=== PATIENT | female | born 1995 | race Caucasian/White ===

== ENCOUNTER 2017-12-01 09:26 | Emergency (ER) | payer OTHER ==
[2017-12-01 09:41] VITALS: BMI 18.5
--- NOTE | 2017-12-01 09:46 | PDOC ---
History of Present Illness - General History Source: Patient Exam Limitations: No Limitations - History of Present Illness Initial Comments: 12/01/17 10:55 The patient is a 22 year old female, with a significant PMH of anxiety who presents to the emergency department with SOB since today morning. The patient reports the symptoms are similar to the time she had an anxiety attack. The patient states she she was unable to sleep due to the discomfort in breathing. The patient reports nausea followed only by belching, but denies vomiting. She also reports associated chest pressure-like pain with breathing (feels like someone punched my chest). The patient states she started taking laxative because she was having difficulty moving her bowels, however, continued to use the laxatives because it reportedly helped her to lose weight. She reports the last use of laxative was about one month ago. The patient denies vomiting, cough , fever, chills, diarrhea, constipation, frequency or urgency to urinate. Secondarily, the patient reports loss of appetite for the past 1-2 months which she attributes to a sensation of being full even with the littlest bite followed by the feeling of pressure on her lungs. Last Menses: 11/14/2017 Allergies: NKA Meds: hydroxyzine Past surgical history: Patient reports none Social history: Patient denies any use of cigarettes, alcohol or recreational drugs PCP: Dr. Na Ogden Psych: Dr. Godinez <Lisa Peres - Last Filed: 12/01/17 11:07> <Elizabeth Hubbard - Last Filed: 12/01/17 11:59> - General Chief Complaint: Lightheaded Stated Complaint: DEHYDRATED Time Seen by Provider: 12/01/17 09:46 Past History <Lisa Peres - Last Filed: 12/01/17 11:07> - Past Medical History COPD: No Psychiatric Problems: Yes (ANXIETY) - Immunization History Immunization Up to Date: Yes - Suicide/Smoking/Psychosocial Hx Smoking Status: No Smoking History: Never smoked Number of Cigarettes Smoked Daily: 0 Cigars Per Day: 0 Hx Alcohol Use: No Substance Use Type: None <Elizabeth Hubbard - Last Filed: 12/01/17 11:59> - Past Medical History Allergies/Adverse Reactions: Allergies Allergy/AdvReac Type Severity Reaction Status Date / Time No Known Allergies Allergy Verified 12/01/17 09:37 Home Medications: Ambulatory Orders Hydroxyzine Pamoate 25 mg PO TID 12/01/17 Review of Systems - Review of Systems Able to Perform ROS?: Yes Comments:: 12/01/17 10:55 GENERAL/CONSTITUTIONAL: No fever or chills. No weakness. HEAD, EYES, EARS, NOSE AND THROAT: No change in vision. No ear pain or discharge. No sore throat. CARDIOVASCULAR: (+) chest pain and shortness of breath. RESPIRATORY: No cough, wheezing, or hemoptysis. GASTROINTESTINAL: (+) nausea. No vomiting, diarrhea or constipation. GENITOURINARY: No dysuria, frequency, or change in urination. MUSCULOSKELETAL: No joint or muscle swelling or pain. No neck or back pain. SKIN: No rash NEUROLOGIC: No headache, vertigo, loss of consciousness, or change in strength/ sensation. ENDOCRINE: No increased thirst. No abnormal weight change. HEMATOLOGIC/LYMPHATIC: No anemia, easy bleeding, or history of blood clots. ALLERGIC/IMMUNOLOGIC: No hives or skin allergy. <Lisa Peres - Last Filed: 12/01/17 11:07> *Physical Exam - Vital Signs Last Vital Signs Temp Pulse Resp BP Pulse Ox 97.9 F 119 H 19 109/47 100 12/01/17 09:37 12/01/17 09:37 12/01/17 09:37 12/01/17 09:37 12/01/17 09:37 - Physical Exam Comments: 12/01/17 10:56 GENERAL: Awake, alert, and fully oriented, in no acute distress HEAD: No signs of trauma EYES: PERRLA, EOMI, sclera anicteric, conjunctiva clear ENT: Auricles normal inspection, hearing grossly normal, nares patent, oropharynx clear without exudates. Moist mucosa NECK: Normal ROM, supple, no lymphadenopathy, JVD, or masses LUNGS: Breath sounds equal, clear to auscultation bilaterally. No wheezes, and no crackles HEART: (+) tachycardia Regular rhythm, normal S1 and S2, no murmurs, rubs or gallops ABDOMEN: Soft, nontender, normoactive bowel sounds. No guarding, no rebound. No masses EXTREMITIES: Normal range of motion, no edema. No clubbing or cyanosis. No cords, erythema, or tenderness NEUROLOGICAL: Cranial nerves II through XII grossly intact. Normal speech, normal gait SKIN: Warm, Dry, normal turgor, no rashes or lesions noted. <Lisa Peres - Last Filed: 12/01/17 11:07> - Vital Signs Last Vital Signs Temp Pulse Resp BP Pulse Ox 97.9 F 119 H 19 109/47 100 12/01/17 09:37 12/01/17 09:37 12/01/17 09:37 12/01/17 09:37 12/01/17 09:37 <Elizabeth Hubbard - Last Filed: 12/01/17 11:59> Heart Score/ECG Review - ECG Intrepretation Comment:: 12/01/17 11:08 EKG was read by DR. hubbard at 11:00 am Normal sinus rhythm vent rate: 92BPM WV interval: 134ms. QTC: 467ms <Lisa Peres - Last Filed: 12/01/17 11:07> ED Treatment Course - LABORATORY CBC & Chemistry Diagram: 12/01/17 10:26 12/01/17 10:40 - ADDITIONAL ORDERS Additional order review: Laboratory Results 12/01/17 10:26 Urine HCG, Qual Negative 12/01/17 10:26 RBC 4.53 MCV 84.6 MCHC 33.7 RDW 13.1 MPV 8.5 Neutrophils % 60.3 D Lymphocytes % 32.0 D Monocytes % 4.7 Eosinophils % 2.5 D Basophils % 0.5 - Medications Given in the ED: ED Medications Discontinued Medications Generic Name Dose Route Start Last Admin Trade Name Freq PRN Reason Stop Dose Admin Lorazepam 1 mg 12/01/17 10:12 12/01/17 10:46 Ativan Injection - IVPUSH 12/01/17 10:13 1 mg ONCE ONE Administration <Lisa Peres - Last Filed: 12/01/17 11:07> - LABORATORY CBC & Chemistry Diagram: 12/01/17 10:26 12/01/17 10:40 <Elizabeth Hubbard - Last Filed: 12/01/17 11:59> Medical Decision Making - Medical Decision Making 12/01/17 10:14 Pt presents to the ED complaining of 24 hours of nausea, shortness of breath, chest pressure and generalized anxiety. History of chronic anxiety, which is treated with hydroxizine, which she has taken without relief. Patient also reports a history of chronic laxative abuse. Symptoms may be secondary to anxiety or dehydration, but given her tachycardia and chest complaints, PE remains in the differential. Will treat with IV hydration, check labs and reassess. If tachycardia resolves, will likely discharge, but if patient remains tachycardic, will initiate work up for PE. 12/01/17 11:56 Pt feels improved after ativan and IV hydration. HR now in the 90s. Will discharge home with folllow up with her PMD. <Elizabeth Hubbard - Last Filed: 12/01/17 11:59> *DC/Admit/Observation/Transfer - Attestations Scribe Attestion: 12/01/17 10:56 Documentation prepared by Lisa Peres, acting as medical representative for Elizabeth Hubbard MD. <Lisa Peres - Last Filed: 12/01/17 11:07> - Discharge Dispostion Admit: No <Elizabeth Hubbard - Last Filed: 12/01/17 11:59> Diagnosis at time of Disposition: Anxiety, Dehydration - Discharge Dispostion Disposition: HOME Condition at time of disposition: Good - Referrals Referrals: Na Ogden MD [Primary Care Provider] - Shantal Gardner MD [Staff Physician] - - Patient Instructions Printed Discharge Instructions: DI for Anxiety -- Adult Additional Instructions: return to the ED for severe chest pain or shortness of breath, severe nausea, vomiting or fever. Return for thoughts of hurting yourself or others. Follow up with your doctor and with psychiatry.
[2017-12-01] MEDS ORDERED: SODIUM CHLORIDE 0.9% 500 ML INFUS.BAG IV ONE (10:12)
[2017-12-01] MEDS ORDERED: LORazepam 2 MG/ML SDV VIAL ONE (10:27)
[2017-12-01 10:52] LABS: BASO % 0.5 % (0-2.0); EOS % 2.5 % (0-4.5); HEMATOCRIT 38.3 % (32.4-45.2); HEMOGLOBIN 12.9 GM/dL (10.7-15.3); MCH 28.5 pg (25.7-33.7); MCHC 33.7 g/dl (32.0-36.0); MEAN CELL VOLUME 84.6 fl (80-96); MEAN PLT VOLUME 8.5 fl (7.5-11.1); MONO % 4.7 % (3.8-10.2); NEUT % 60.3 % (42.8-82.8); PLATELET COUNT 156 K/MM3 (134-434); RBC 4.53 M/mm3 (3.60-5.2); RDW 13.1 % (11.6-15.6); WHITE BLOOD COUNT 5.1 K/mm3 (4.0-10.0)
[2017-12-01 11:20] LABS: ANION GAP 9 (8-16); BILIRUBIN,TOTAL 0.5 mg/dL (0.2-1.0); BLOOD UREA NITROGEN 8 mg/dL (7-18); CALCIUM 8.7 mg/dL (8.5-10.1); CHLORIDE 109 mmol/L (98-107); CO2 23 mmol/L (21-32); GLUCOSE,RANDOM 92 mg/dL (74-106); POTASSIUM 3.6 mmol/L (3.5-5.1); SGOT/AST 18 U/L (15-37); SGPT/ALT 16 U/L (12-78); SODIUM 141 mmol/L (136-145); TOT PROT 7.3 g/dl (6.4-8.2)
[2017-12-01 11:55] LABS: ALK PHOS 58 U/L (45-117)
[2017-12-01 12:10] VITALS: BP 115/71; PULSE 81; TEMP 98
--- NOTE | 2017-12-01 12:26 | EKG ---
Test Reason : Blood Pressure : / mmHG Vent. Rate : 092 BPM Atrial Rate : 092 BPM P-R Int : 134 ms QRS Dur : 084 ms QT Int : 378 ms P-R-T Axes : 081 073 042 degrees QTc Int : 467 ms NORMAL SINUS RHYTHM NORMAL ECG WHEN COMPARED WITH ECG OF 08-MAY-2014 07:50, SINUS RHYTHM HAS REPLACED ATRIAL FLUTTER Confirmed by LOGAN COLE, KAYLI ([id number]) on 12/01/2017 12:26:22 PM Referred By: Confirmed By:KAYLI FORD MD
== END 2017-12-01 12:10 | disposition home or self-care (01) ==
LOC: JER 09:26
PROC: 3E033NZ Introduction of Analgesics, Hypnotics, Sedatives into Peripheral Vein, Percutaneous Approach (ICD-10-PCS; principal; 2017-12-01)
DX: F41.9 Anxiety disorder, unspecified (principal); E86.0 Dehydration
CPT/HCPCS: 36415; 80053; 84703; 85025; 93005; 93010; 99283-25

== ENCOUNTER 2019-04-29 08:51 | Emergency (ER) | payer OTHER ==
[2019-04-29 08:56] VITALS: BP 123/66; PULSE 91; TEMP 98.5; BMI 18.8
--- NOTE | 2019-04-29 09:18 | PDOC ---
History of Present Illness - General Chief Complaint: Cold Symptoms Stated Complaint: CHRONIC COUGHING/ CONGESTED/ ASTHMA Time Seen by Provider: 04/29/19 08:59 History Source: Patient - History of Present Illness Timing/Duration: reports: other Associated Symptoms: reports: cough, nasal congestion, shortness of breath. denies: fever/chills, wheezing Past History - Past Medical History Allergies/Adverse Reactions: Allergies Allergy/AdvReac Type Severity Reaction Status Date / Time No Known Allergies Allergy Verified 04/29/19 08:54 Home Medications: Ambulatory Orders Hydroxyzine Pamoate 25 mg PO TID 12/01/17 LORazepam [Ativan] 0.5 mg PO DAILY PRN #1 tablet MDD 1 12/01/17 Albuterol Sulfate Inhaler - [Ventolin HFA Inhaler -] 1 - 2 inh PO Q4H #1 inhaler 04/29/19 Asthma: Yes COPD: No DVT: No Psychiatric Problems: Yes (ANXIETY) - Immunization History Immunization Up to Date: Yes - Suicide/Smoking/Psychosocial Hx Smoking Status: No Smoking History: Never smoked Have you smoked in the past 12 months: No Number of Cigarettes Smoked Daily: 0 Cigars Per Day: 0 Hx Alcohol Use: No Drug/Substance Use Hx: No Substance Use Type: None Review of Systems - Review of Systems Constitutional: No: Chills, Fever Respiratory: Yes: Cough, Shortness of Breath. No: Wheezing Cardiac (ROS): No: Chest Pain, Chest Tightness *Physical Exam - Vital Signs Last Vital Signs Temp Pulse Resp BP Pulse Ox 98.5 F 91 H 16 123/66 98 04/29/19 08:54 04/29/19 08:54 04/29/19 08:54 04/29/19 08:54 04/29/19 08:54 - Physical Exam General Appearance: Yes: Appropriately Dressed. No: Apparent Distress HEENT: positive: Normal ENT Inspection, Normal Voice, TMs Normal, Pharynx Normal. negative: Scleral Icterus (R), Scleral Icterus (L) Neck: positive: Supple. negative: Lymphadenopathy (R), Lymphadenopathy (L) Respiratory/Chest: positive: Lungs Clear, Normal Breath Sounds. negative: Respiratory Distress Cardiovascular: positive: Regular Rate, S1, S2 Integumentary: positive: Dry, Warm Neurologic: positive: Fully Oriented, Alert, Normal Mood/Affect Medical Decision Making - Medical Decision Making 04/29/19 09:03 24 yo F, h/o anxiety, ?asthma (told possible by pmd in past after c/o SOB, given alb pump, no official w/u), here w/ productive cough w/ congestion intermittently x 2-3 months. ? intermittent SOB, no wheezing, chest tightness, hemoptysis, f/c. No tob use. Dx w/ "bronchitis" 2 months ago and completed a course of abx but states sxs continue. No tob hx See Persistent cough w/ ?sob Not resolved w/ course of abx for "bronchitis" per pt No tob use Stable w/ clear chest/lungs -cxr 04/29/19 10:27 CXR neg. Dc to use alb pump prn SOB/wheezing which may possibly reflect RAD. To f/u with PMD this week *DC/Admit/Observation/Transfer Diagnosis at time of Disposition: Cough - Discharge Dispostion Disposition: HOME Condition at time of disposition: Good - Prescriptions Prescriptions: Albuterol Sulfate Inhaler - [Ventolin HFA Inhaler -] 1 - 2 inh PO Q4H #1 inhaler - Referrals - Patient Instructions Printed Discharge Instructions: DI for Viral Upper Respiratory Infection -- Adult Additional Instructions: Your CXR was negative here Your symptoms might be viral. Use your albuterol pump as needed for shortness of breath as this might reflect reactive airway disease as discussed today Please follow up with your PMD this week - Post Discharge Activity
== END 2019-04-29 10:34 | disposition home or self-care (01) ==
LOC: JERFT 08:51
DX: J06.9 Acute upper respiratory infection, unspecified (principal); B97.89 Other viral agents as the cause of diseases classified elsewhere
CPT/HCPCS: 71046-TC-FY; 84703; 99282-25

== ENCOUNTER 2021-06-13 13:05 | Emergency (ER) | payer OTHER ==
[2021-06-13 13:16] VITALS: BP 111/69; PULSE 90; TEMP 98; BMI 17.4
[2021-06-13] MEDS ORDERED: predniSONE 20 MG TABLET (UD) PO ONE (13:36)
[2021-06-13] MEDS ORDERED: predniSONE 20 MG TABLET (UD) ONE (14:54)
== END 2021-06-13 14:52 | disposition home or self-care (01) ==
LOC: JER 13:05
DX: R05.1 Acute cough (principal); Z11.52 Encounter for screening for COVID-19
CPT/HCPCS: 71046-TC-FY; 99284-25; C9803; U0003; U0005

== ENCOUNTER 2021-08-19 11:12 | Emergency (ER) | payer OTHER ==
[2021-08-19 11:40] VITALS: BP 113/76; PULSE 113; TEMP 98.7; BMI 19.9
[2021-08-20 22:07] LABS: SARS-CoV-2 NAA Not Detected (Not Detected)
== END 2021-08-19 12:36 | disposition home or self-care (01) ==
LOC: JER 11:12
DX: R05.1 Acute cough (principal); R09.89 Other specified symptoms and signs involving the circulatory and respiratory systems
CPT/HCPCS: 99283-25; C9803; U0003; U0005

== ENCOUNTER 2021-09-10 09:11 | Emergency (ER) | payer OTHER ==
[2021-09-10 09:18] VITALS: BP 120/75; PULSE 100; TEMP 97.9; BMI 19.9
[2021-09-10] MEDS ORDERED: predniSONE 20 MG TABLET (UD) PO ONE (09:37)
[2021-09-10] MEDS ORDERED: predniSONE 20 MG TABLET (UD) ONE (09:49)
== END 2021-09-10 10:42 | disposition home or self-care (01) ==
LOC: JER 09:11
DX: R05.1 Acute cough (principal); R06.02 Shortness of breath
CPT/HCPCS: 71046-TC-FY; 99285-25; C9803; U0003; U0005

== ENCOUNTER 2023-07-28 19:51 | Emergency (ER) | payer OTHER ==
[2023-07-28 20:12] VITALS: BP 116/65; TEMP 98.3; BMI 21.4
[2023-07-28] MEDS ORDERED: ALBUTEROL SO4 2.5/IPRATROPIUM 0.5 INH SOL 3 ML VIAL.NEB. NEB ONE ×2 (20:43)
[2023-07-28] MEDS ORDERED: DEXAMETHASONE SOD PHOSPHATE 10 MG/1 ML VIAL ONE (20:46)
[2023-07-28] MEDS ORDERED: DEXAMETHASONE SOD PHOSPHATE 10 MG/1 ML VIAL IM ONE (20:48)
[2023-07-28 21:29] LABS: THROAT:GRP A STREP NOT DETECTED (NOTDETECTED)
[2023-07-28 21:55] VITALS: PULSE 100; RESP 16
== END 2023-07-28 22:23 | disposition home or self-care (01) ==
LOC: JERFT 19:51
PROC: 3E0F7GC Introduction of Other Therapeutic Substance into Respiratory Tract, Via Natural or Artificial Opening (ICD-10-PCS; principal; 2023-07-28)
PROC: 3E023GC Introduction of Other Therapeutic Substance into Muscle, Percutaneous Approach (ICD-10-PCS; 2023-07-28)
DX: J45.901 Unspecified asthma with (acute) exacerbation (principal); B34.9 Viral infection, unspecified; R07.9 Chest pain, unspecified; Z20.822 Contact with and (suspected) exposure to COVID-19
CPT/HCPCS: 0241U-QW; 71046-TC-FY; 87651; 99285-25; J1100

== ENCOUNTER 2024-06-10 13:38 | Emergency (ER) | payer OTHER ==
[2024-06-10 13:58] VITALS: BP 119/80; PULSE 79; RESP 20; TEMP 98.6; BMI 21.4
[2024-06-10] MEDS ORDERED: CYCLOBENZAPRINE HCL 10 MG TABLET (FP) ONE (14:27)
[2024-06-10] MEDS ORDERED: IBUPROFEN 600 MG TABLET (FP) PO ONE ×2 (14:27→14:29)
[2024-06-10] MEDS: CYCLOBENZAPRINE HCL 10 MG TABLET (FP) PO ONE (14:31)
[2024-06-10] MEDS: IBUPROFEN 600 MG TABLET (FP) PO ONE (14:31)
== END 2024-06-10 15:20 | disposition home or self-care (01) ==
LOC: JERFT 13:38
DX: M54.2 Cervicalgia (principal)
CPT/HCPCS: 72050-TC-FY; 99283-25